=== PATIENT | female | born 1945 | race Caucasian/White ===

== ENCOUNTER 2018-10-20 14:24 | Outpatient (RCR) | payer BC, MEDICARE | END 2018-10-20 15:00 | disposition home or self-care (01) | LOC: PT 14:24 | DX: S82.141D Displaced bicondylar fracture of right tibia, subsequent encounter for closed fracture with routine healing (principal) | CPT/HCPCS: G8978-GP; G8979-GP ==

== ENCOUNTER → 2023-08-19 | Outpatient (CLI) | payer OTHER, MEDICARE ==
[~2023-08-19] MED LIST: ACETAMINOPHEN-H1 TA2 PO; APRESOLINE 25MG25 MG PO; CLONIDINE1 EAC2 TD; FLUOXETINE HCL20 MG PO; LANTUS SOLOS100 U/ML SQ; METOPROLOL SUCC25 M1 PO; OZEMPIC1 MG/0.71 SQ; PREGABALIN50 MG PO
[2023-08-19 11:44] LABS: POTASSIUM 5.2 mmol/L (3.5-5.1)
[2023-08-19 11:45] LABS: CALCIUM 9.4 mg/dL (8.3-10.5)
== END ==
LOC: LAB 11:00
PROVIDERS: Urology
DX: R93.422 Abnormal radiologic findings on diagnostic imaging of left kidney (principal)